=== PATIENT | female | born 1975 | race Two or more races ===

== ENCOUNTER 2020-02-04 05:50 | Day surgery (SDC) | payer OTHER ==
[~2020-02-04 05:50] MED LIST: CLONAZEP PO; TEMAZE PO
== END 2020-02-04 13:00 | disposition home or self-care (01) ==
LOC: CIR.AMB 05:50
PROVIDERS: ATTEND Plastic Surgery
DX: N65.1 Disproportion of reconstructed breast (principal); Z20.828 Contact with and (suspected) exposure to other viral communicable diseases